=== PATIENT | female | born 1965 | race Caucasian/White ===

== ENCOUNTER 2022-06-27 15:11 | Outpatient (CLI) | payer OTHER, SELFPAY ==
--- NOTE | 2022-06-27 15:18 | MM_ITS ---
WS: [id number] SCREENING DIGITAL BREAST TOMOSYNTHESIS MAMMOGRAM WITH CAD HISTORY: SCREENING COMPARISON: 06/08/2007 Bilateral CC and MLO with tomosynthesis and synthetic mammography submitted. Computer aided detection analyzed. Breast composition: The breasts are heterogeneously dense, which may obscure small masses. Partially obscured nodule measuring 12 x 11 mm central to the LEFT nipple on the CC projection. There is a the nipple line on the lateral projection. Recommend additional evaluation. MM/[place] [id number] IMPRESSION: BI-RADS: 0-Incomplete: Need additional imaging evaluation FOLLOW UP: Need Additional Imaging Recommendation: LEFT breast ultrasound, limited to 12:00.
== END 2022-06-27 15:12 | disposition home or self-care (01) ==
LOC: RAD 15:12
PROVIDERS: Visit Provider Nurse Practitioner Family
DX: Z12.31 Encounter for screening mammogram for malignant neoplasm of breast (principal)
CPT/HCPCS: 77063; 77067

== ENCOUNTER 2022-08-04 11:55 | Outpatient (CLI) | payer OTHER, SELFPAY ==
--- NOTE | 2022-08-04 12:14 | US_ITS ---
WS: [id number] Left breast ultrasound, 08/04/2022 Clinical Data: INCONCLUSIVE MAMMOGRAPHY DUE TO DENSE BREASTS Comparison: Mammogram, 06/27/2022 Findings: The left breast was examined in the 12:00 position adjacent to the nipple. Only normal breast tissue could be seen. There is no evidence of any spiculated masses, cysts or abnormal tissue. US/US breast LT limited* [id number] Impression: 1. Negative left breast ultrasound. 2. Return to annual screening mammograms. BIRADS: 1-Negative FOLLOW UP: See Report
== END 2022-08-04 11:56 | disposition home or self-care (01) ==
LOC: RAD 11:57
PROVIDERS: PCP Nurse Practitioner Family; Visit Provider Nurse Practitioner Family
DX: R92.2 Inconclusive mammogram (principal)
CPT/HCPCS: 76642

== ENCOUNTER 2023-07-30 13:10 | Outpatient (CLI) | payer MEDICAID, SELFPAY ==
--- NOTE | 2023-07-30 13:12 | MM_ITS ---
WS: [email or web address] BILATERAL SCREENING DIGITAL TOMOSYNTHESIS MAMMOGRAM WITH CAD HISTORY: SCREENING COMPARISON: 06/27/2022 and 06/08/2007 Bilateral CC and MLO views with tomosynthesis and synthetic mammography submitted. Computer aided det ection analyzed. Breast composition: There are scattered areas of fibroglandular density. No suspicious masses, microc alcifications or architectural distortion. Focal asymmetry in the central LEFT breast on the CC proje ction is stable. IMPRESSION: MM/[place] [id number] BI-RADS: 2-Benign FOLLOW UP: 1 Year Follow-up
== END 2023-07-30 13:11 | disposition home or self-care (01) ==
LOC: RAD 13:10
PROVIDERS: PCP Nurse Practitioner Family; Visit Provider Nurse Practitioner Family
DX: Z12.31 Encounter for screening mammogram for malignant neoplasm of breast (principal)
CPT/HCPCS: 77063; 77067

== ENCOUNTER → 2024-04-07 13:12 | Outpatient (CLI) | payer MEDICAID, SELFPAY ==
--- NOTE | 2024-04-07 13:18 | XR_ITS ---
WS: [email or web address] SCREENING DEXA SCAN [employer] CLINICAL INFORMATION: DZ OF BONE DENSITY STRUCTURE COMPARISON: None. FINDINGS: The L1-L4 bone mineral density measures 0.969 g/cm2. This corresponds to a T score score of -1.8 and Z score of -0.1. Left femoral neck bone mineral density measures 0.678 g/cm2. This corresponds to a T score of -2.6 an d Z score of -1.4. Right femoral neck bone mineral density measures 0.730 g/cm2. This corresponds to a T score -2.2of an d Z score of -1.0. Mean femoral neck bone mineral density measures 0.704 g/cm2. This corresponds to a T score of -2.4 an d Z score of -1.2. XR/XR DEXA axial skeleton* [id number] IMPRESSION: Osteopenia lumbar spine. Osteopenia femoral necks at the upper end of the range approaching osteoporosis. Patient's FRAX calculated 10 year probability for major osteoporotic fracture i s 13.4% and osteoporotic hip fracture is 5.4%.
== END | disposition home or self-care (01) ==
LOC: RAD 13:11
PROVIDERS: PCP Nurse Practitioner Family; Visit Provider Physician Assistant
DX: M85.9 Disorder of bone density and structure, unspecified (principal); M85.89 Other specified disorders of bone density and structure, multiple sites
CPT/HCPCS: 77080

== ENCOUNTER 2024-05-18 14:33 | Outpatient (CLI) | payer MEDICAID, SELFPAY ==
[2024-05-18 15:23] LABS: Free T4 Free Thyroxine 0.99 ng/dL (0.82-1.77); Thyroid Stimulating Hormone 0.67 uIU/mL (0.27-4.20)
== END 2024-05-18 14:34 | disposition home or self-care (01) ==
LOC: LAB 14:34
PROVIDERS: PCP Nurse Practitioner Family; Visit Provider Internal Medicine
DX: E07.9 Disorder of thyroid, unspecified (principal); E04.1 Nontoxic single thyroid nodule
CPT/HCPCS: 36415; 84439; 84443

== ENCOUNTER 2024-05-25 10:44 | Outpatient (CLI) | payer MEDICAID, SELFPAY ==
--- NOTE | 2024-05-25 11:45 | US_ITS ---
WS: [email or web address] ULTRASOUND-GUIDED RIGHT THYROID NODULE FNA HISTORY: RIGHT thyroid nodule. Procedure, risks, and complications were explained to the patient. Consent has been obtained. Comparison: Outside imaging 04/04/2024 The skin is cleansed with ChloraPrep and anesthetized with 1% buffered lidocaine. FNA performed with 25 gauge needles. fibre technologist is present to fix slides. Mass is localized in the mid gland. This is a hypoechoic mass with increased peripheral vascularity. There are a few cystic areas present also. This mass will be targeted for biopsy. No bleeding post procedure. US/US biopsy/FNA thyroid [id number] IMPRESSION: Uncomplicated FNA of a RIGHT thyroid nodule. Final pathology results pending.
== END 2024-05-25 10:45 | disposition home or self-care (01) ==
LOC: RAD 10:45
PROVIDERS: PCP Physician Assistant; Visit Provider Internal Medicine
DX: E04.1 Nontoxic single thyroid nodule (principal); Z80.8 Family history of malignant neoplasm of other organs or systems
CPT/HCPCS: 10005; 88173

== ENCOUNTER 2024-11-23 14:38 | Outpatient (CLI) | payer MEDICAID, SELFPAY ==
[2024-11-23 15:42] LABS: Calcium 10.1 mg/dL (8.5-10.5)
[2024-11-23 15:45] LABS: Alanine Aminotransferase 19 U/L (0-33); Albumin Level 4.4 g/dL (3.5-5.2); Alkaline Phosphatase 87 U/L (35-105); Anion Gap 15.6 (5-19); Aspartate Amino Transferase 19 U/L (0-32); Blood Urea Nitrogen 22 mg/dL (6-20); Calcium 9.7 mg/dL (8.5-10.5); Carbon Dioxide 24 mmol/L (22-29); Chloride 106 mmol/L (98-107); Free T4 Free Thyroxine 0.99 ng/dL (0.82-1.77); Glomerular Filtration Rate 102.3 mL/min (90-130); Glucose 102 mg/dL (65-115); Osmolality Calculated 298 mOsm/kg (285-295); Potassium 3.6 mmol/L (3.5-5.1); Sodium 142 mmol/L (136-145); Thyroid Stimulating Hormone 0.86 uIU/mL (0.27-4.20); Total Bilirubin 0.2 mg/dL (0.15-1.2); Total Protein 7.4 g/dL (6.6-8.7)
[2024-11-23 16:39] LABS: Parathyroid Hormone 42.3 pg/mL (15-65)
[2024-11-23 18:36] LABS: 25 Hydroxy Vitamin D 47 ng/mL (30-100)
== END 2024-11-23 14:39 | disposition home or self-care (01) ==
LOC: LAB 14:41
PROVIDERS: PCP Physician Assistant; Visit Provider Internal Medicine
DX: E07.9 Disorder of thyroid, unspecified (principal); E04.1 Nontoxic single thyroid nodule; M81.0 Age-related osteoporosis without current pathological fracture
CPT/HCPCS: 36415; 80053; 82306; 82310; 83970; 84439; 84443

== ENCOUNTER → 2025-01-25 12:50 | Outpatient (BNVA) | payer MEDICAID, SELFPAY | PROVIDERS: PCP Physician Assistant; Visit Provider Specialist | DX: M19.042 Primary osteoarthritis, left hand (principal) | CPT/HCPCS: 73130 ==

== ENCOUNTER 2025-06-21 10:56 | Outpatient (CLI) | payer MEDICAID, SELFPAY ==
--- NOTE | 2025-06-21 11:15 | US_ITS ---
WS: [email or web address] ULTRASOUND THYROID TECHNIQUE: Ultrasound of the thyroid. CLINICAL INFORMATION: see below COMPARISON: 11/11/2024 FINDINGS: Thyroid: Right and left thyroid lobes are normal in size and echotexture. Previously biopsied nodule in the RIGHT mid thyroid previously measuring 2.8 x 1.4 x 1.7 cm with a few punctate echogenic foci is stable. This is previously classified as TI-RADS 5. Today this measures approximately 2.6 x 1.2 x 1.7 cm unchanged considering differences in technique. Surrounding vascularity is stable. Right thyroid lobe: 4.9 cm x 1.8 cm x 1.7 cm Left thyroid lobe: 4.7 cm x 1.0 cm x 1.3 cm. Isthmus: 0.3 mm. Cervical lymphadenopathy: None. US/US thyroid [id number] IMPRESSION: Previously biopsied nodule in the RIGHT mid thyroid is stable
[2025-06-21 13:07] LABS: Alanine Aminotransferase 30 U/L (0-33); Albumin Level 4.4 g/dL (3.5-5.2); Alkaline Phosphatase 98 U/L (35-105); Anion Gap 15.6 (5-19); Aspartate Amino Transferase 26 U/L (0-32); Blood Urea Nitrogen 14 mg/dL (8-23); Calcium 9.3 mg/dL (8.5-10.5); Carbon Dioxide 22 mmol/L (22-29); Chloride 104 mmol/L (98-107); Globulin 3.0 g/dL (1.3-4.6); Glucose 102 mg/dL (65-115); Osmolality Calculated 287 mOsm/kg (285-295); Potassium 3.6 mmol/L (3.5-5.1); Sodium 138 mmol/L (136-145); Total Protein 7.4 g/dL (6.6-8.7)
== END 2025-06-21 10:57 | disposition home or self-care (01) ==
LOC: RAD 10:58
PROVIDERS: PCP Physician Assistant; Visit Provider Internal Medicine
DX: E04.1 Nontoxic single thyroid nodule (principal); Z80.8 Family history of malignant neoplasm of other organs or systems; E07.9 Disorder of thyroid, unspecified; M81.0 Age-related osteoporosis without current pathological fracture; R05.9 Cough, unspecified
CPT/HCPCS: 36415; 76536; 80053; 82306

== ENCOUNTER 2025-09-15 10:49 | Outpatient (CLI) | payer MEDICAID, SELFPAY ==
--- NOTE | 2025-09-15 10:54 | MM_ITS ---
WS: [email or web address] BILATERAL 3D TOMOSYNTHESIS DIGITAL SCREENING MAMMOGRAPHY WITH CAD CLINICAL INFORMATION: SCREENING HISTORY: Screening mammogram. No current complaints. COMPARISON: 2022 TECHNIQUE: Bilateral CC and MLO views. FINDINGS: Scattered fibroglandular densities bilaterally. Irregular spiculated asymmetric density anterior RIGHT breast near the 12 o'clock position measuring 8 mm. Recommend RIGHT breast diagnostic mammography and ultrasound. Unremarkable LEFT breast MM/MM scr BI tomosynthesis [id number] IMPRESSION: DENSITY: There are scattered areas of fibroglandular density. BI-RADS: 0 - Incomplete: Need additional imaging evaluation. FOLLOW UP: Need Additional Imaging Recommend RIGHT breast diagnostic mammography and ultrasound.
== END 2025-09-15 10:50 | disposition home or self-care (01) ==
LOC: RAD 10:49
PROVIDERS: PCP Physician Assistant; Visit Provider Nurse Practitioner Occupational Health
DX: Z12.31 Encounter for screening mammogram for malignant neoplasm of breast (principal); N64.89 Other specified disorders of breast; N63.11 Unspecified lump in the right breast, upper outer quadrant
CPT/HCPCS: 77063; 77067